=== PATIENT | female | born 2005 | race African-American/Black ===

== ENCOUNTER 2023-06-04 13:33 | Emergency (ER) | payer MEDICAID ==
[~2023-06-04] VITALS: Ht 172.7 cm; Wt 108.0 kg
[2023-06-04 13:41] VITALS: BP 128/84; RESP 20; TEMP 98.2; O2SAT 100
[2023-06-04 13:48] VITALS: PULSE 75
[2023-06-04] MEDS ORDERED: PSEU60TA95 MT (16:30)
== END 2023-06-04 16:55 | disposition home or self-care (01) ==
LOC: ER 13:33
DX: R07.89 Other chest pain (principal); R05.9 Cough, unspecified; Z87.01 Personal history of pneumonia (recurrent); Z87.440 Personal history of urinary (tract) infections; F12.10 Cannabis abuse, uncomplicated
CPT/HCPCS: 71045; 93005; 99283